=== PATIENT | male | born 1990 | race Hispanic/Latino ===

== ENCOUNTER 2020-06-10 12:48 | Emergency (ER) | payer OTHER, SELFPAY ==
[2020-06-10] MEDS ORDERED: IBUPROFEN 600 MG TABLET ONE (13:07)
[2020-06-10] MEDS ORDERED: ACETAMINOPHEN-CODEINE 300/30MG TAB ONE (13:08)
== END 2020-06-10 13:14 | disposition home or self-care (01) ==
LOC: EDH 12:48
DX: M72.2 Plantar fascial fibromatosis (principal); Z87.891 Personal history of nicotine dependence